=== PATIENT | male | born 1960 | race Two or more races ===

== ENCOUNTER 2017-12-10 13:14 | Emergency (ER) | payer MEDICAID ==
[~2017-12-10] VITALS: Ht 170.2 cm; Wt 64.6 kg
[~2017-12-10 13:14] MED LIST: BACL20TA PO; GABA-532 PO; HYDR-565 PO; IBUP-1985 PO; LISI10TA4 PO; OMEP20TA5 PO; SERT100T PO
[2017-12-10] MEDS ORDERED: normal saline 1000ML IV soln IVB ONE (15:35)
[2017-12-10 15:48] LABS: BASOPHILS % (AUTO) 0.4 % (0-1); EOSINOPHILS # (AUTO) 0.1 X10'3 (0-0.9); EOSINOPHILS % (AUTO) 1.3 % (0-6); HEMATOCRIT 41.3 % (42.0-52.0); HEMOGLOBIN 14.6 g/dl (14.0-17.9); LYMPHOCYTES # (AUTO) 1.2 X10'3 (1.1-4.8); LYMPHOCYTES % (AUTO) 24.6 % (21-51); MEAN CORPUSCULAR HEMOGLOBIN 30.4 PG (27.0-31.0); MEAN CORPUSCULAR HGB CONC 35.3 % (33.0-36.5); MEAN CORPUSCULAR VOLUME 86.1 FL (78-98); MEAN PLATELET VOLUME 6.8 FL (7.4-10.4); MONOCYTES # (AUTO) 0.4 X10'3 (0-0.9); MONOCYTES % (AUTO) 7.6 % (2-12); NEUTROPHILS # (AUTO) 3.1 X10'3 (1.8-7.7); NEUTROPHILS % (AUTO) 66.1 % (42-75); PLATELET COUNT 260 X10'3 (140-440); RED BLOOD COUNT 4.79 X10'6 (4.70-6.10); RED CELL DISTRIBUTION WIDTH 13.8 % (11.5-14.5); WHITE BLOOD COUNT 4.8 X10'3 (4.5-11.0)
[2017-12-10 16:05] LABS: ALANINE AMINOTRANSFERASE 36 U/L (12-78); ALBUMIN 3.7 G/DL (3.4-5.0); ALBUMIN/GLOBULIN RATIO 1.3 (1.1-1.5); ALKALINE PHOSPHATASE 56 IU/L (46-116); ANION GAP 7 (8-16); ASPARTATE AMINO TRANSFERASE 23 U/L (10-37); BILIRUBIN,TOTAL 1.2 MG/DL (0.1-1.0); BLOOD UREA NITROGEN 18 MG/DL (7-18); BUN/CREATININE RATIO 19.6 (5.4-32.0); CALCIUM 9.3 MG/DL (8.5-10.1); CHLORIDE 107 MMOL/L (99-107); CREATININE 0.92 MG/DL (0.60-1.10); GLUCOSE 98 MG/DL (70-104); POTASSIUM 3.7 MMOL/L (3.5-5.1); SODIUM 142 MMOL/L (135-145); TOTAL CARBON DIOXIDE 28.2 MMOL/L (24-32); TOTAL PROTEIN 6.5 G/DL (6.4-8.2); eGFR 85 ML/MIN
[2017-12-10 18:12] VITALS: BP 130/80
== END 2017-12-10 18:13 | disposition home or self-care (01) ==
LOC: ER 13:14
DX: R55 Syncope and collapse (principal); T50.905A Adverse effect of unspecified drugs, medicaments and biological substances, initial encounter; I10 Essential (primary) hypertension; G89.29 Other chronic pain; Z98.890 Other specified postprocedural states; Z79.899 Other long term (current) drug therapy
CPT/HCPCS: 36415; 80053; 84484; 85025; 93005; 96360; 99285; J7030

== ENCOUNTER 2019-03-10 15:14 | Emergency (ER) | payer MEDICAID ==
[~2019-03-10] VITALS: Ht 170.2 cm; Wt 71.8 kg
[~2019-03-10 15:14] MED LIST changes: -BACL20TA PO; -GABA-532 PO; -HYDR-565 PO; -IBUP-1985 PO; +IRBE150T51 PO; -LISI10TA4 PO; -OMEP20TA5 PO; -SERT100T PO
[2019-03-10] MEDS ORDERED: meclizine 12.5mg tablet PO ONE (15:55)
[2019-03-10 16:19] LABS: BASOPHILS % (AUTO) 0.3 % (0-1); EOSINOPHILS # (AUTO) 0.1 X10'3 (0-0.9); HEMATOCRIT 43.6 % (42.0-52.0); HEMOGLOBIN 15.3 g/dl (14.0-17.9); LYMPHOCYTES # (AUTO) 0.9 X10'3 (1.1-4.8); LYMPHOCYTES % (AUTO) 14.3 % (21-51); MEAN CORPUSCULAR HEMOGLOBIN 30.8 PG (27.0-31.0); MEAN CORPUSCULAR HGB CONC 35.1 g/dL (33.0-36.5); MEAN CORPUSCULAR VOLUME 87.8 FL (78-98); MEAN PLATELET VOLUME 6.5 FL (7.4-10.4); MONOCYTES # (AUTO) 0.4 X10'3 (0-0.9); MONOCYTES % (AUTO) 6.9 % (2-12); NEUTROPHILS # (AUTO) 4.6 X10'3 (1.8-7.7); NEUTROPHILS % (AUTO) 77.5 % (42-75); PLATELET COUNT 272 X10'3 (140-440); RED BLOOD COUNT 4.97 X10'6 (4.70-6.10)
[2019-03-10 16:26] LABS: ALANINE AMINOTRANSFERASE 37 U/L (12-78); ALBUMIN/GLOBULIN RATIO 1.4 (1.1-1.5); ALKALINE PHOSPHATASE 62 IU/L (46-116); ANION GAP 8 (8-16); ASPARTATE AMINO TRANSFERASE 20 U/L (10-37); BILIRUBIN,TOTAL 0.8 MG/DL (0.1-1.0); BLOOD UREA NITROGEN 19 MG/DL (7-18); BUN/CREATININE RATIO 21.8 (5.4-32.0); CALCIUM 9.2 MG/DL (8.5-10.1); CHLORIDE 109 MMOL/L (99-107); CREATININE 0.87 MG/DL (0.60-1.10); GLUCOSE 91 MG/DL (70-104); POTASSIUM 3.9 MMOL/L (3.5-5.1); SODIUM 144 MMOL/L (135-145); TOTAL CARBON DIOXIDE 27.5 MMOL/L (24-32); TOTAL PROTEIN 6.9 G/DL (6.4-8.2); eGFR > 90 ML/MIN
[2019-03-10] MEDS ORDERED: diazepam 5mg tablet PO ONE (17:25)
[2019-03-10] MEDS ORDERED: MECL-111 PO (18:56)
[2019-03-10 19:07] VITALS: BP 132/78
== END 2019-03-10 19:08 | disposition home or self-care (01) ==
LOC: ER 15:14
DX: R42 Dizziness and giddiness (principal); R11.2 Nausea with vomiting, unspecified; R20.0 Anesthesia of skin; R20.2 Paresthesia of skin; I10 Essential (primary) hypertension; G89.29 Other chronic pain; Z98.890 Other specified postprocedural states; Z79.899 Other long term (current) drug therapy
CPT/HCPCS: 36415; 70450; 71045; 80053; 83880; 84484; 85025; 85610; 93005; 99284; J8597

== ENCOUNTER 2019-04-24 09:12 | Emergency (ER) | payer MEDICAID ==
[~2019-04-24] VITALS: Ht 170.2 cm; Wt 71.8 kg
[~2019-04-24 09:12] MED LIST changes: +MECL-111 PO
--- NOTE | 2019-04-24 09:38 | NUR ---
AWAITING ED .GIRLFRIEND AT BEDSIDE.
[2019-04-24 10:46] LABS: BASOPHILS % (AUTO) 0.2 % (0-1); EOSINOPHILS % (AUTO) 0.4 % (0-6); HEMATOCRIT 41.2 % (42.0-52.0); HEMOGLOBIN 14.6 g/dl (14.0-17.9); LYMPHOCYTES # (AUTO) 0.9 X10'3 (1.1-4.8); LYMPHOCYTES % (AUTO) 20.6 % (21-51); MEAN CORPUSCULAR HEMOGLOBIN 30.9 PG (27.0-31.0); MEAN CORPUSCULAR HGB CONC 35.3 g/dL (33.0-36.5); MEAN CORPUSCULAR VOLUME 87.6 FL (78-98); MEAN PLATELET VOLUME 6.7 FL (7.4-10.4); MONOCYTES # (AUTO) 0.3 X10'3 (0-0.9); MONOCYTES % (AUTO) 6.5 % (2-12); NEUTROPHILS # (AUTO) 3.1 X10'3 (1.8-7.7); NEUTROPHILS % (AUTO) 72.3 % (42-75); PLATELET COUNT 262 X10'3 (140-440); RED BLOOD COUNT 4.71 X10'6 (4.70-6.10); RED CELL DISTRIBUTION WIDTH 13.2 % (11.5-14.5); WHITE BLOOD COUNT 4.3 X10'3 (4.5-11.0)
[2019-04-24 11:01] LABS: ALANINE AMINOTRANSFERASE 36 U/L (12-78); ALBUMIN 3.7 G/DL (3.4-5.0); ALBUMIN/GLOBULIN RATIO 1.3 (1.1-1.5); ALKALINE PHOSPHATASE 57 IU/L (46-116); ANION GAP 5 (8-16); ASPARTATE AMINO TRANSFERASE 19 U/L (10-37); BILIRUBIN,TOTAL 0.8 MG/DL (0.1-1.0); BLOOD UREA NITROGEN 15 MG/DL (7-18); BUN/CREATININE RATIO 18.1 (5.4-32.0); CALCIUM 8.8 MG/DL (8.5-10.1); CHLORIDE 109 MMOL/L (99-107); CREATININE 0.83 MG/DL (0.60-1.10); GLUCOSE 100 MG/DL (70-104); POTASSIUM 3.8 MMOL/L (3.5-5.1); SODIUM 143 MMOL/L (135-145); TOTAL CARBON DIOXIDE 29.2 MMOL/L (24-32); TOTAL PROTEIN 6.5 G/DL (6.4-8.2); eGFR > 90 ML/MIN
--- NOTE | 2019-04-24 11:05 | NUR ---
HOSPITAL SALES REPRESENTATIVE AT BEDSIDE. Addendum: 04/24/19 at 1105 by ASTMARIA ISABEL SALES AND SERVICE ENGINEER AT BEDSIDE.
--- NOTE | 2019-04-24 12:44 | NUR ---
MAEGAN PEREZ AT BEDSIDE.
[2019-04-24 14:14] VITALS: BP 135/75
== END 2019-04-24 14:16 | disposition home or self-care (01) ==
LOC: ER 09:12
DX: M79.601 Pain in right arm (principal); I10 Essential (primary) hypertension; G89.29 Other chronic pain; Z98.890 Other specified postprocedural states
CPT/HCPCS: 36415; 80053; 84484; 85025; 93005; 93931; 99284

== ENCOUNTER 2020-03-12 19:42 | Emergency (ER) | payer MEDICAID ==
[~2020-03-12] VITALS: Ht 170.2 cm; Wt 65.9 kg
[~2020-03-12 19:42] MED LIST changes: -MECL-111 PO; +MECL-159 PO
[2020-03-12] MEDS ORDERED: ibuprofen 200mg tablet PO ONE (20:35)
[2020-03-12] MEDS ORDERED: HYDR-4383 PO (21:40)
[2020-03-12] MEDS ORDERED: IBUP-1985 PO (21:40)
[2020-03-12 21:52] VITALS: BP 139/91
== END 2020-03-12 21:53 | disposition home or self-care (01) ==
LOC: ER 19:42
DX: S20.212A Contusion of left front wall of thorax, initial encounter (principal); S40.812A Abrasion of left upper arm, initial encounter; S80.812A Abrasion, left lower leg, initial encounter; I10 Essential (primary) hypertension; G89.29 Other chronic pain; Z98.890 Other specified postprocedural states; Z79.899 Other long term (current) drug therapy; W01.10XA Fall on same level from slipping, tripping and stumbling with subsequent striking against unspecified object, initial encounter; Y93.89 Activity, other specified; Y92.89 Other specified places as the place of occurrence of the external cause; Y99.8 Other external cause status
CPT/HCPCS: 71046; 71100; 99284

== ENCOUNTER 2020-09-28 19:01 | Inpatient (IN) | payer MEDICAID ==
[~2020-09-28] VITALS: Ht 170.2 cm; Wt 63.6 kg
[~2020-09-28 19:01] MED LIST changes: +HYDR-4383 PO; +IBUP-1985 PO
[2020-09-28 19:55] LABS: BASOPHILS % (AUTO) 0.1 % (0-1); EOSINOPHILS # (AUTO) 0.1 X10'3 (0-0.9); EOSINOPHILS % (AUTO) 1.2 % (0-6); HEMOGLOBIN 14.1 g/dl (14.0-17.9); LYMPHOCYTES # (AUTO) 1.1 X10'3 (1.1-4.8); LYMPHOCYTES % (AUTO) 15.8 % (21-51); MEAN CORPUSCULAR HEMOGLOBIN 29.6 PG (27.0-31.0); MEAN CORPUSCULAR HGB CONC 34.4 g/dL (33.0-36.5); MEAN CORPUSCULAR VOLUME 86.1 FL (78-98); MEAN PLATELET VOLUME 6.9 FL (7.4-10.4); MONOCYTES # (AUTO) 0.6 X10'3 (0-0.9); NEUTROPHILS # (AUTO) 5.3 X10'3 (1.8-7.7); NEUTROPHILS % (AUTO) 74.9 % (42-75); PLATELET COUNT 329 X10'3 (140-440); RED BLOOD COUNT 4.76 X10'6 (4.70-6.10); RED CELL DISTRIBUTION WIDTH 13.8 % (11.5-14.5); WHITE BLOOD COUNT 7.1 X10'3 (4.5-11.0)
[2020-09-28 20:01] LABS: ALANINE AMINOTRANSFERASE 170 U/L (12-78); ALBUMIN 3.1 G/DL (3.4-5.0); ALBUMIN/GLOBULIN RATIO 0.9 (1.1-1.5); ALKALINE PHOSPHATASE 160 IU/L (46-116); ANION GAP 9 (8-16); ASPARTATE AMINO TRANSFERASE 55 U/L (10-37); BILIRUBIN,TOTAL 0.7 MG/DL (0.1-1.0); BLOOD UREA NITROGEN 29 MG/DL (7-18); CALCIUM 8.9 MG/DL (8.5-10.1); CHLORIDE 98 MMOL/L (99-107); CREATININE 1.21 MG/DL (0.60-1.10); GLUCOSE 263 MG/DL (70-104); POTASSIUM 3.9 MMOL/L (3.5-5.1); SODIUM 134 MMOL/L (135-145); TOTAL CARBON DIOXIDE 27.3 MMOL/L (24-32); TOTAL PROTEIN 6.4 G/DL (6.4-8.2); eGFR 62 ML/MIN
[2020-09-28] MEDS ORDERED: ondansetron/PF 4mg/2ml inj IV ONE (20:35)
[2020-09-28] MEDS ORDERED: morphine 4 MG/ML inj SYRINge IV ONE (20:35)
[2020-09-28 20:51] LABS: CHOLESTEROL 130 MG/DL (0-200); HDL CHOLESTEROL 43 MG/DL (35-60); HEMOGLOBIN A1C 5.6 % (4.5-6.2); LDL CHOLESTEROL 73 MG/DL (50-100); TRIGLYCERIDES 90 MG/DL (20-135)
[2020-09-28] MEDS ORDERED: iohexol 350MG/ML 100ml bottle IV ONE (20:56)
[2020-09-28] MEDS ORDERED: HYDR-3973 (21:32)
[2020-09-28] MEDS ORDERED: IRBE150T24 PO (21:32)
[2020-09-28] MEDS ORDERED: ATOR20TA66 PO (21:32)
--- NOTE | 2020-09-28 21:38 | NUR ---
Hosp at bedside to visualize pt.
[2020-09-28] MEDS ORDERED: BACL5TAB PO (21:40)
[2020-09-28] MEDS ORDERED: acetaminophen 325mg tablet PO PRN ×2 (21:45)
[2020-09-28] MEDS ORDERED: ondansetron/PF 4mg/2ml inj IV PRN (21:45)
[2020-09-28] MEDS ORDERED: HYDROcodone/acetaminophen 10/325mg tab PO PRN (21:45)
[2020-09-28] MEDS ORDERED: morphine 2 MG/ML inj. syringe IV PRN ×2 (21:45)
[2020-09-28] MEDS ORDERED: magnesium hydroxide 30ml (MOM) UD suspension PO PRN (21:45)
[2020-09-28] MEDS ORDERED: HYDROcodone/acetaminophen 5mg/325mg tablet PO PRN (21:45)
[2020-09-28] MEDS ORDERED: mag hydrox/Alum hydrox/simeth 30ml oral suspension PO PRN (21:45)
[2020-09-29] VITALS (12 sets, daily range): BP systolic 100–121; BP diastolic 65–84
[2020-09-29 01:31] LABS: BASOPHILS % (AUTO) 0.3 % (0-1); EOSINOPHILS % (AUTO) 0.3 % (0-6); HEMATOCRIT 41.2 % (42.0-52.0); HEMOGLOBIN 14.4 g/dl (14.0-17.9); LYMPHOCYTES # (AUTO) 0.9 X10'3 (1.1-4.8); LYMPHOCYTES % (AUTO) 10.3 % (21-51); MEAN CORPUSCULAR HEMOGLOBIN 29.8 PG (27.0-31.0); MEAN CORPUSCULAR HGB CONC 34.9 g/dL (33.0-36.5); MEAN CORPUSCULAR VOLUME 85.5 FL (78-98); MEAN PLATELET VOLUME 6.5 FL (7.4-10.4); MONOCYTES # (AUTO) 0.9 X10'3 (0-0.9); MONOCYTES % (AUTO) 10.5 % (2-12); NEUTROPHILS # (AUTO) 6.8 X10'3 (1.8-7.7); NEUTROPHILS % (AUTO) 78.6 % (42-75); PLATELET COUNT 311 X10'3 (140-440); RED BLOOD COUNT 4.82 X10'6 (4.70-6.10); WHITE BLOOD COUNT 8.6 X10'3 (4.5-11.0)
--- NOTE | 2020-09-29 01:31 | NUR ---
PT MOVED ONTO HOSPITAL BED FOR COMFORT. REPORTS FEELING NAUSEOUS
[2020-09-29 01:49] LABS: ALANINE AMINOTRANSFERASE 172 U/L (12-78); ALBUMIN 3.3 G/DL (3.4-5.0); ALBUMIN/GLOBULIN RATIO 0.9 (1.1-1.5); ALKALINE PHOSPHATASE 164 IU/L (46-116); ANION GAP 4 (8-16); ASPARTATE AMINO TRANSFERASE 45 U/L (10-37); BILIRUBIN,TOTAL 0.8 MG/DL (0.1-1.0); BLOOD UREA NITROGEN 27 MG/DL (7-18); BUN/CREATININE RATIO 26.5 (5.4-32.0); CHLORIDE 102 MMOL/L (99-107); CREATININE 1.02 MG/DL (0.60-1.10); GLUCOSE 122 MG/DL (70-104); POTASSIUM 4.4 MMOL/L (3.5-5.1); SODIUM 138 MMOL/L (135-145); TOTAL CARBON DIOXIDE 32.3 MMOL/L (24-32); TOTAL PROTEIN 6.8 G/DL (6.4-8.2); eGFR 75 ML/MIN
--- NOTE | 2020-09-29 08:36 | NUR ---
Girlfriend updated on plan of care.
[2020-09-29] MEDS ORDERED: regadenoson 0.4mg/5ml syringe IV ONE (09:20)
[2020-09-29] MEDS ORDERED: aminophylline 250mg/10ml inj. IV PRN (09:20)
[2020-09-29] MEDS ORDERED: nitroGLYCERIN 0.4mg SUBLingual tab SL PRN (09:20)
[2020-09-29] MEDS ORDERED: metoprolol tartrate 1mg/ml inj IV PRN (09:20)
--- NOTE | 2020-09-29 12:05 | NUR ---
[employer] REPORTS SHE HAS GIVEN PRE SUZY SCAN INJECTION. PT IN BED, NO DISTRESS, ALERT AND ORIENTED, CARDIAC AND SPO2 MONITORING IN PLACE. NPO
--- NOTE | 2020-09-29 15:18 | NUR ---
Paged Dr. Núñez regarding patient dom scan results being back and asking for a diet order. PAGER ID: [phone] MESSAGE: [id number]. Robin Bradley. Patient dom scan results are back. May I order a diet for patient? Thank you. Italia SYKES x [phone]
--- NOTE | 2020-09-29 18:16 | NUR ---
Problems reprioritized. Patient report given, questions answered & plan of care reviewed with Brannon RN. pt content eating dinner. no s/sx acute distress.
--- NOTE | 2020-09-29 18:38 | NUR ---
Report received and discussed with MONY Echavarria.
--- NOTE | 2020-09-30 13:15 | NUR ---
CASE MANAGEMENT DISCHARGE FOLLOW UP: Spoke with pt via telephone. Reports that he feels really good, out walking at this moment; denies CP, SOB, dizziness. Verbalizes understanding of s/sx requiring further evaluation/emergent assistance. States that MD told him that baclofen likely cause pt's chest pain, pt states that he is no longer going to be taking it. Verbalizes compliance with MD discharge instructions. Verbalizes understanding of the importance in making/keeping follow-up appointments, has appointment with [facility] on Saturday. Encouraged pt to have PCP go over imaging studies with him, pt states that he will. States no further questions/concerns at this time.
== END 2020-09-29 20:20 | disposition home or self-care (01) | DRG 203 ==
LOC: ER 19:01 → ED HOLD 21:43 → OBSVTOIN 09-29 08:00 → PCU 3S 09-29 14:50
PROVIDERS: ADMIT Internal Medicine; ATTEND Internal Medicine
PROC: 4A02XM4 Measurement of Cardiac Total Activity, External Approach (ICD-10-PCS; principal; 2020-09-29)
PROC: 3E033HZ Introduction of Radioactive Substance into Peripheral Vein, Percutaneous Approach (ICD-10-PCS; 2020-09-29)
DX: R07.89 Other chest pain (principal); E78.5 Hyperlipidemia, unspecified; I10 Essential (primary) hypertension; Z79.899 Other long term (current) drug therapy; Z82.3 Family history of stroke; G89.29 Other chronic pain; M54.9 Dorsalgia, unspecified; R73.9 Hyperglycemia, unspecified; R74.01 Elevation of levels of liver transaminase levels
CPT/HCPCS: 36415; 71045; 71275; 78452; 80053; 80061; 83036; 83880; 84484; 85025; 87081; 93005; 93017; 99285; A9500; G0378; J0280; J2270; J2405; J2785; Q9967